=== PATIENT | male | born 1960 | race Caucasian/White ===

== ENCOUNTER 2016-04-05 07:45 | Day surgery (SDC) | payer OTHER, MEDICAID ==
[~2016-04-05 07:45] MED LIST: IV START KIT ONE; LACTATED RINGERS 1,000 ML IV SCH; LACTATED RINGERS 1,000 ML ONE
[2016-04-05] MEDS ORDERED: MIDAZOLAM HCL 1 MG/ML 2ML VIAL ONE (07:58)
[2016-04-05] MEDS ORDERED: PROPOFOL 20 ML IV ONE (07:58)
[2016-04-05] MEDS ORDERED: FENTANYL 100 MCG/2 ML VIAL ONE (07:58)
[2016-04-05] MEDS ORDERED: ALBUTEROL SULFATE MDI 60 PUFFS/INHALER IH ONE (08:08)
[2016-04-05 08:48] LABS: HELICOBACTER PYLORII DETECTION POSITIVE (NEGATIVE)
--- NOTE | 2016-04-07 10:47 | PROCNOTE ---
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 The endoscopy was to exclude varices although, no varices were noted gastritis was noted. Rapid urease testing returned positive. The patient is being contacted and informed and Biaxin and metronidazole both 500 mg twice daily for 10 days are being added to his prescription of omeprazole. Medical follow up will be by [facility] physician assistant principal. JOB: [id number] CC: MARIA R Ferro
--- NOTE | 2016-04-07 14:34 | SURGPATH ---
[facility] [address] [place] [id number] Patient Name: CORNELIA RHODES MR#: [id number] : 1960 Gender: M Specimen #: [id number] Collected: 04/05/2016 Received: 04/06/2016 Reported: 04/07/2016 Submitting Phys: SAUMYA GAITAN Copy To Phys: JORGE ARMENTA [facility] Clinical History / Pre-Operative Diagnosis: HEPATITIS C; CIRRHOSIS; RULE OUT VARICES AND GASTRITIS Specimen Source / Surgical Procedure Performed: ANTRAL BIOPSY Interpretation: GASTRIC ANTRUM, BIOPSY: - CHRONIC ACTIVE HELICOBACTER GASTRITIS Electronically Signed Out Agustin Zafar M.D. Gross Description: The specimen is received in a formalin filled container labeled with the patient's name and "antral biopsy". Two galvan biopsies are 0.5 and 0.6 cm. Totally embedded in one cassette. Gianna Hurley Microscopic Description: Levels reveal fragments of gastric mucosa with a normal architecture. Increased numbers of chronic inflammatory cells are present throughout the superficial lamina propria. There are also scattered neutrophils within the epithelium and stroma. Numerous organisms with morphologic features of Helicobacter are seen within the mucus layer. Dysplasia and malignancy are not identified. 1: [id number] K29.30 B96.81
== END 2016-04-05 09:04 | disposition home or self-care (01) ==
LOC: SDC 07:45
PROVIDERS: ATTEND Internal Medicine Gastroenterology
PROC: 0DB68ZX Excision of Stomach, Via Natural or Artificial Opening Endoscopic, Diagnostic (ICD-10-PCS; principal; 2016-04-05)
DX: B18.2 Chronic viral hepatitis C (principal); K74.60 Unspecified cirrhosis of liver; K29.50 Unspecified chronic gastritis without bleeding; B96.81 Helicobacter pylori [H. pylori] as the cause of diseases classified elsewhere; K29.80 Duodenitis without bleeding; Z79.82 Long term (current) use of aspirin; Z87.891 Personal history of nicotine dependence; J44.9 Chronic obstructive pulmonary disease, unspecified; K76.6 Portal hypertension; D73.2 Chronic congestive splenomegaly; D69.6 Thrombocytopenia, unspecified; I10 Essential (primary) hypertension; E78.5 Hyperlipidemia, unspecified
CPT/HCPCS: 87081; 43239; J3010; J2250; J7120